=== PATIENT | female | born 1975 | race Caucasian/White ===

== ENCOUNTER 2023-08-25 08:32 | Emergency (ER) | payer OTHER ==
[2023-08-25 08:40] VITALS: BP 115/71; PULSE 67; RESP 18; TEMP 97.8
[2023-08-25] MEDS ORDERED: DEXAMETHASONE SOD PHOSPHATE 10 MG/1 ML VIAL PO ONE (09:48)
[2023-08-25] MEDS ORDERED: DEXAMETHASONE SOD PHOSPHATE 10 MG/1 ML VIAL ONE (09:54)
== END 2023-08-25 10:53 | disposition home or self-care (01) ==
LOC: JERFT 08:32 → JER 08:32 → JERFT 10:53
PROC: 3E033GC Introduction of Other Therapeutic Substance into Peripheral Vein, Percutaneous Approach (ICD-10-PCS; principal; 2023-08-25)
DX: R05.9 Cough, unspecified (principal); Z20.822 Contact with and (suspected) exposure to COVID-19
CPT/HCPCS: 0241U-QW; 71045-TC-FY; 99284-25; J1100